=== PATIENT | male | born 1985 | race Caucasian/White ===

== ENCOUNTER 2018-02-04 07:13 | Day surgery (SDC) | payer OTHER ==
[2018-02-04] MEDS ORDERED: BUPIVACAINE 0.5% PF 30 ML VIAL ONE (07:18)
[2018-02-04] MEDS ORDERED: ceFAZolin 2 GM/50 ML 2 GM/50 ML BAG IV ONE (07:24)
--- NOTE | 2018-02-04 07:27 | ANESTHESIA ---
Pre-Anesthesia VS, & Labs - Diagnosis R inguinal hernia - Procedure R inguinal hernia repair, possible left Vital Signs: Last Vital Signs Temp 36.3 C L 02/04/18 07:26 Pulse 62 02/04/18 07:26 Resp 18 02/04/18 07:26 BP 141/95 H 02/04/18 07:26 Pulse Ox 99 02/04/18 07:26 Height 5 ft 10 in Weight (kg) 80.5 kg - NPO >8 hours Anes History & Medical History - Anesthetic History Family history of Anesthesia Complications: Denies Family history of Malignant Hyperthermia: Denies - Medical History Cardiovascular: reports: None Pulmonary: reports: None Gastrointestinal: reports: Other (inguinal hernia@R) Urinary: reports: None Neuro: reports: None Musculoskeletal: reports: None Smoking Status: Never smoker Psychosocial: reports: No issues indicated - Surgical History General: Appendectomy Exam General: Alert, Oriented x3, Cooperative Mouth Openin Fingerbreadth Neck Mobility: Normal Mallampati classification: II Thyromental Distance: 4-6 cm Respiratory: Lungs clear, Normal breath sounds, No respiratory distress Cardiovascular: Regular rate Neurological: Normal speech Mental/Cognitive Status: Alert/Oriented X3, Normal for patient Plan Anesthesia Type: General Consent for Procedure(s) Verified and Reviewed: Yes Code Status: Attempt Resuscitation ASA classification: 2-Mild systemic disease Is this case an emergency?: No
[2018-02-04] MEDS ORDERED: LACTATED RINGERS 1,000 ML IV ONE (07:46)
[2018-02-04] MEDS ORDERED: BUPIVACAINE 0.5% PF 30 ML VIAL INFIL ONE (09:22)
[2018-02-04] MEDS ORDERED: SODIUM CHLORIDE 0.9% 10 ML VIAL IV ONE (09:30)
[2018-02-04] MEDS ORDERED: ROCURONIUM 50 MG/5 ML VIAL IVP ONE (09:30)
[2018-02-04] MEDS ORDERED: DEXAMETHASONE 4 MG/ML VIAL IVP ONE (09:30)
[2018-02-04] MEDS ORDERED: MIDAZOLAM 2 MG/2 ML VIAL IVP ONE (09:30)
[2018-02-04] MEDS ORDERED: PROPOFOL 1000 MG/100 ML IV ONE (09:30)
[2018-02-04] MEDS ORDERED: GLYCOPYRROLATE 1 MG/5 ML VIAL IVP ONE (09:30)
[2018-02-04] MEDS ORDERED: PHENYLEPHRINE 50 MG/5 ML VIAL IV ONE (09:30)
[2018-02-04] MEDS ORDERED: ONDANSETRON 4 MG/2 ML VIAL IVP ONE (09:30)
[2018-02-04] MEDS ORDERED: LIDOCAINE-MPF 2% 5 ML VIAL IM ONE (09:30)
[2018-02-04] MEDS ORDERED: NEOSTIGMINE 1 MG/1 ML 10 ML MDV IVP ONE (09:30)
[2018-02-04] MEDS ORDERED: fentaNYL 100 MCG/2 ML VIAL IVP ONE (09:30)
[2018-02-04] MEDS ORDERED: HYDROmorphone 0.5 MG/0.5 ML SYRINGE IVP PRN (11:35)
[2018-02-04] MEDS ORDERED: ONDANSETRON 4 MG/2 ML VIAL IVP PRN (11:35)
[2018-02-04] MEDS ORDERED: HYDROcod/ACETAM 5/325 MG TABLET PO PRN (11:35)
--- NOTE | 2018-02-04 11:38 | OPERATIVE REPORT ---
Operative Report - General Procedure Date: 02/04/18 Planned Procedure: TEP RIGHT inguinal herniorrhaphy Pre-Op Diagnosis: RIGHT inguinal hernia Procedure Performed: TEP RIGHT and LEFT inguinal herniorrhaphy Post Op Diagnosis: RIGHT indirect inguinal hernia and LEFT inguinal hernia - Procedure Note Primary Surgeon: Jose M Gambino MD Anesthesia Provider: Reece Sharp CRNA Anesthesia Technique: General ET tube, Local (30 mL 1/2% marcaine) IV Fluids (mL): 800 Estimated Blood Loss (mL): 10 Complications: None. - Other Other Information/Narrative: OPERATIVE DESCRIPTION/REPORT: After verbal and written informed consent was obtained detailing the risks of infection, bleeding requiring transfusion with its risks, nerve injury, and , and after I met with the patient confirming the surgery and the site of t he surgery, the patient was brought to the operative suite and placed supine on the operating table. Great care was taken to avoid pressure points to prevent pressure necrosis or nerve injury. Monitoring devices were applied along with TEDs and pneumatic compressive stockings (to prevent DVT). The patient received preoperative antibiotics for surgical prophylaxis. Reece Sharp CRNA sedated and induced general anesthesia and provided anesthesia care for the entirety of the case. The patient was prepped and draped in the usual sterile manner. With the patient draped my initials were clearly visible. A "time in" then confirmed that the patient was identified with 3 identifiers (name, date and medical record number), the history and physical was in the chart, the signed consent c onfirming the procedure was in the chart, the patient was in the correct position, the aforementioned prophylactic measures were in place or given, we had the correct personnel and equipment to complete the procedure and that anesthesia, surgery and nursing were given an opportunity to express any concerns. With the agreement of everyone in the room, we proceeded with the operation. A transverse skin incision was made below the umbilicus to a length of approximately 3 cm tracing the medial portion of theprevious incision. The incision was carried through the subcutaneous tissue. Bleeders were cauterized. The right rectus sheath was identified and incised lateral to the midline. The preperitoneal space was then developed following insertion of a Spacemaker balloon, which was inflated under direct vision. Following removal of the Spacemaker balloon, a #10 trocar was placed in the preperitoneal space and the preperitoneal space was insufflated with CO2 to a steady state pressure of 15 mmHg. A 10 mm 30 degree laparoscope was inserted in the preperitoneal space. Two #5 trocars were placed 5 cm below the umbilicus in the middle 4 and 8 cm from the umbilical incision under direct vision and without incident. Landmarks including symphysis pubis, right and left Ruiz ligaments and right and left inferior epigastric vessels were identified. Dissection was then continued lateral to the transverse abdominis muscle bilaterally. The right side was addressed first as it was the symptomatic side. The internal ring was then explored for the presence of the indirect hernia sac and this was reduced under direct vision with traction and counter-traction. The sac was quite large and significant dissection was required. During the dissection a small tear was created in the peritoneum but it was exceedingly small and did not require re-approximation. Exploration of the medial space did not show a medial defect suggesting no direct hernia. A Covidien Progrip RIGHT anatomical mesh (Lot#[id number], Ref#[id number], Use by 2020-07-25) was obtained and placed. The mesh covered the internal ring as well as any potential direct hernia site. No tacking was required. Please note that upon visual examination no definite direct or indirect hernia was seen on the LEFT side, but with the dissection of the peritoneum and the patient's young age and level of activity I felt it prudent to place a piece of mesh. A Cov[employer]ien Progrip LEFT anatomical mesh (Lot#[id number], Ref#[id number], Use by 2020-06-24) was obtained and placed. The mesh covered the internal ring as well as any potential direct hernia site. No tacking was required. The preperitoneal space was preston irrigated with 1 L of warm sterile saline. The effluent was clear. 10 mL of 1/2% Marcaine was injected into the preperitoneal space and then remaining 20 mL at all three incisions. The preperitoneal space was then deflated and during the deflation the mesh was watched to ensure that it was sandwiched nicely in place and did not change position. All trocars were withdrawn. The defect in the rectus sheath was closed with a [id number] 0 Vicryl suture. The skin incisions were closed with subcuticular 4-0 Monocryl suture. The prep was washed off and Mastisol and Steristrips were applied at all the incisions. At this point a time out was performed that confirmed that all the counts were correct, the procedure that was performed, the blood loss, the IV fluids administered, and the patients condition. The prep was washed off and Benzoin and Steristrips were applied. Having tolerated the procedure well, the patient was subsequently extubated and taken to recovery room in good and stable condition. [employer] disclaimer: This document was created in part using voice recognition technology. Because of the inherent limitations of the system ([employer] user manual states that the licensee understands that speech recognition is a statistical process and that recognition errors are inherent in the process), occasional same sounding word substitutions and grammatical errors do occur and persist despite proofreading. Please read this document for context.
[2018-02-04] MEDS: fentaNYL 100 MCG/2 ML VIAL ONE ×2 (11:50→12:00)
[2018-02-04] MEDS ORDERED: SCOPOLAMINE PATCH TOP ONE (12:56)
[2018-02-04 14:17] VITALS: BP 136/90
== END 2018-02-04 07:14 | disposition home or self-care (01) ==
LOC: SDS 07:13
PROVIDERS: ATTEND Surgery
PROC: 0YUA4JZ Supplement Bilateral Inguinal Region with Synthetic Substitute, Percutaneous Endoscopic Approach (ICD-10-PCS; principal; 2018-02-04 08:30)
DX: K40.90 Unilateral inguinal hernia, without obstruction or gangrene, not specified as recurrent (principal)
CPT/HCPCS: 49650; C1781; J0690; J3490; J7120

== ENCOUNTER 2022-01-25 21:20 | Emergency (ER) | payer OTHER ==
--- NOTE | 2022-01-25 21:38 | ED Physician Documentation ---
PD HPI CHEST PAIN - Stated complaint Stated Complaint: CHEST PX, TIGHTNESS IN THROAT - Chief complaint Chief Complaint: Cardiac - History obtained from History obtained from: Patient - History of Present Illness Timing - onset: How many days ago (2-3) Timing - onset during: Rest Timing - details: Abrupt onset, Intermittant Pain level now: 0 Quality: Pain Location: Substernal Radiation: Other (does not radiate) Improved by: Nothing Worsened by: Other (no exacerbating factors) Associated symptoms: No: Shortness of air, Nausea, Vomiting Similar symptoms before: Has not had sx before Recently seen: Not recently seen - Additional information Additional information: over past 2-3 days, patient has had episodic midline chest pain which resolves spontaneously after few minutes. No inciting/exacerbating/ameliorating factors. He also had episode of LUE pain radiating down to fingers that was independent of the chest pain as well as sensation of neck feeling tight which, again, was independent of any other pain (LUE, chest). He has been monitoring his blood pressures lately and they have been running high; he has an appointment coming up with his PMD to discuss the blood pressures, but in light of these recent high blood pressures, he became more concerned regarding the pains (chest, neck, LUE) he has been having and thus presents at this time to the ED Review of Systems Constitutional: reports: Reviewed and negative Cardiac: reports: Chest pain / pressure (resolved). denies: Palpitations, Pedal edema, Calf pain Respiratory: reports: Reviewed and negative GI: reports: Reviewed and negative Musculoskeletal: reports: Neck pain (resolved), Extremity pain (resolved) PD PAST MEDICAL HISTORY - Past Medical History Cardiovascular: None Respiratory: None Neuro: None Endocrine/Autoimmune: None GI: Other (inguinal hernia@R) : None HEENT: None Psych: None Musculoskeletal: None Derm: None - Past Surgical History General: Appendectomy - Present Medications Home Medications: Ambulatory Orders Medication Instructions Recorded Confirmed No Known Home Medications 01/25/22 01/25/22 - Allergies Allergies/Adverse Reactions: Allergies Allergy/AdvReac Type Severity Reaction Status Date / Time No Known Drug Allergies Allergy Verified 01/25/22 22:04 - Social History Smoking Status: Never smoker PD ED PE NORMAL - Vitals Vital signs reviewed: Yes - General General: Alert and oriented X 3, No acute distress, Well developed/nourished - Neck Neck: Supple, no meningeal sign - Cardiac Cardiac: RRR, No murmur, No gallop, No rub - Respiratory Respiratory: No respiratory distress, Clear bilaterally - Extremities Extremities: No edema Results - Vitals Vitals: Vital Signs - 24 hr 01/25/22 01/25/22 21:24 22:00 Temperature 36.6 C Heart Rate 71 Respiratory 16 Rate Blood Pressure 166/96 H Blood Pressure 149/96 H [Left] O2 Saturation 98 Oxygen O2 Source Room air - EKG (time done) No standard instances Rate: Rate (enter#) (73) Rhythm: NSR Hiram: Normal Intervals: Normal IN QRS: Normal Ischemia: Normal ST segments - Labs Labs: Laboratory Tests 01/25/22 01/25/22 01/25/22 21:42 21:42 21:42 WBC 5.8 RBC 5.53 Hgb 16.0 Hct 45.9 MCV 83.0 MCH 28.9 MCHC 34.9 RDW 12.2 Plt Count 162 MPV 11.4 Neut # (Auto) 3.9 Lymph # (Auto) 1.4 L [place] # (Auto) 0.3 Eos # (Auto) 0.1 Baso # (Auto) 0.0 Absolute Nucleated RBC 0.00 Nucleated RBC % 0.0 Sodium 139 Potassium 3.8 Chloride 102 Carbon Dioxide 28 Anion Gap 9.0 BUN 14 Creatinine 1.0 Estimated GFR (MDRD) 86 L Glucose 112 H Calcium 9.8 Total Bilirubin 0.6 AST 24 ALT 31 Alkaline Phosphatase 98 Troponin I High Sens < 2.3 L Total Protein 7.5 Albumin 4.5 Globulin 3.0 Albumin/Globulin Ratio 1.5 Lipase 41 - Rads (name of study) chest xray Radiology: Prelim report reviewed, See rad report PD MEDICAL DECISION MAKING - ED course Complexity details: reviewed results, re-evaluated patient, considered differential, d/w patient ED course: no concerning findings on CXR, EKG, blood tests including hs-cTn. Blood pressures are high in ED (initial BP is 140s/120s which is too thin a split to represent actual BP, but on subsequent read it is 140s/90s, which is elevated but I instructed patient to continue to monitor his blood pressures and he has appointment with PMD for this issue). Results of tonight's tests d/w patient, return precautions discussed Departure - Departure Disposition: 01 Home, Self Care Clinical Impression: Chest pain Condition: Good Instructions: ED Chest Pain Atypical Unkn Cause Follow-Up: WILLIAM YANG DO [Primary Care Provider] - Comments: The results of tonight's tests are reassuring. The EKG, chest xray, and blood tests are unremarkable. At this time, there is no indication that your symptoms are due to a serious underlying medical issue. Follow up with your primary care provider for reevaluation.
[2022-01-25 21:46] LABS: BASOPHILS % (AUTO) 0.5 %; EOSINOPHILS # (AUTO) 0.1 10^3/uL (0.0-0.7); EOSINOPHILS % (AUTO) 1.7 %; HCT - HEMATOCRIT 45.9 % (42.0-52.0); LYMPHOCYTES # (AUTO) 1.4 10^3/uL (1.5-3.5); LYMPHOCYTES % (AUTO) 24.7 %; MEAN CORPUSCULAR HEMOGLOBIN 28.9 pg (27.0-31.0); MEAN CORPUSCULAR HGB CONC 34.9 g/dL (32.0-36.0); MEAN PLATELET VOLUME 11.4 fL (7.4-11.4); MONOCYTES # (AUTO) 0.3 10^3/uL (0.0-1.0); MONOCYTES % (AUTO) 5.5 %; NEUTROPHILS # (AUTO) 3.9 10^3/uL (1.5-6.6); NEUTROPHILS % (AUTO) 67.3 %; PLT - PLATELET COUNT 162 10^3/uL (130-450); RED BLOOD COUNT 5.53 10^6/uL (4.70-6.10); RED CELL DISTRIBUTION WIDTH 12.2 % (12.0-15.0); WHITE BLOOD COUNT 5.8 x10^3/uL (4.8-10.8)
[2022-01-25 22:04] VITALS: BP 149/96
[2022-01-25 22:04] LABS: ALBUMIN 4.5 g/dL (3.2-5.5); ALBUMIN/GLOBULIN RATIO 1.5 (1.0-2.2); BILIRUBIN,TOTAL 0.6 mg/dL (0.2-1.0); CALCIUM 9.8 mg/dL (8.5-10.3); POTASSIUM 3.8 mmol/L (3.5-5.0); TOTAL PROTEIN 7.5 g/dL (6.7-8.2)
--- NOTE | 2022-01-25 22:32 | XRAY Report ---
PROCEDURE: Chest 1 View X-Ray INDICATIONS: Chest Pain TECHNIQUE: One view of the chest was acquired. COMPARISON: None. FINDINGS: Surgical changes and devices: None. Lungs and pleura: No pleural effusions or pneumothorax. Lungs are clear. Mediastinum: Mediastinal contours appear normal. Heart size is normal. Bones and chest wall: No suspicious bony lesions. Overlying soft tissues appear unremarkable. IMPRESSION: 1. No acute cardiopulmonary disease. Reviewed by: Jorge Lora MD on 01/25/2022 10:31 PM [facility] Approved by: Jorge Lora MD on 01/25/2022 10:31 PM [facility] Station ID: [id number]
== END 2022-01-25 22:35 | disposition home or self-care (01) ==
LOC: ED 21:20
DX: R07.9 Chest pain, unspecified (principal)
CPT/HCPCS: 36415; 80053; 83690; 84484; 85025; 93005; 99284